=== PATIENT | female | born 1995 | race Caucasian/White ===

== ENCOUNTER 2017-06-02 20:36 | Emergency (ER) | payer SELFPAY ==
[~2017-06-02] VITALS: Ht 170.2 cm; Wt 81.8 kg
[2017-06-02 20:48] VITALS: BP 114/80
== END 2017-06-02 22:10 | disposition home or self-care (01) ==
LOC: EMS 20:37
DX: T16.2XXA Foreign body in left ear, initial encounter (principal); X58.XXXA Exposure to other specified factors, initial encounter; Y93.89 Activity, other specified; Y92.89 Other specified places as the place of occurrence of the external cause; Y99.8 Other external cause status
CPT/HCPCS: 69200; 99284

== ENCOUNTER 2018-01-23 02:42 | Emergency (ER) | payer SELFPAY ==
[~2018-01-23] VITALS: Ht 170.2 cm; Wt 77.3 kg
[2018-01-23 03:21] LABS: APPEARANCE,URINE CLOUDY (CLEAR); BILIRUBIN,URINE NEGATIVE (NEGATIVE); GLUCOSE, URINE (UA) NEGATIVE (NEGATIVE); KETONES,URINE NEGATIVE (NEGATIVE); LEUKOCYTE ESTERASE ,URINE SMALL (NEGATIVE); NITRATE,URINE NEGATIVE (NEGATIVE); OCCULT BLOOD,URINE MODERATE (NEGATIVE); PH,URINE 5.5 (5.0-8.0); PROTEIN,URINE POS 1+ (NEGATIVE); UROBILINOGEN,URINE 0.2 mg/dL (<=1.0)
[2018-01-23 03:52] LABS: BACTERIA,URINE Few /HPF (None Seen); SQUAMOUS EPITHELIAL CELL,UR Moderate /LPF (None Seen); YEAST,URINE Few /HPF (None Seen)
[2018-01-23 04:32] VITALS: BP 100/60
== END 2018-01-23 04:42 | disposition home or self-care (01) ==
LOC: EMS 02:43
DX: N39.0 Urinary tract infection, site not specified (principal); F12.90 Cannabis use, unspecified, uncomplicated; F15.90 Other stimulant use, unspecified, uncomplicated; F17.210 Nicotine dependence, cigarettes, uncomplicated
CPT/HCPCS: 87086; 99284

== ENCOUNTER 2019-07-16 12:13 | Emergency (ER) | payer MEDICAID ==
[~2019-07-16] VITALS: Ht 170.2 cm; Wt 54.5 kg
[2019-07-16 12:22] VITALS: BP 132/68
== END 2019-07-16 14:03 | disposition left against medical advice (07) ==
LOC: EMS 12:13
DX: Z53.21 Procedure and treatment not carried out due to patient leaving prior to being seen by health care provider (principal)

== ENCOUNTER 2019-07-16 13:57 | Emergency (ER) | payer MEDICAID ==
[~2019-07-16] VITALS: Ht 170.2 cm; Wt 72.7 kg
[2019-07-16 14:23] VITALS: BP 133/82
== END 2019-07-16 16:17 | disposition left against medical advice (07) ==
LOC: EMS 14:03
DX: Z53.21 Procedure and treatment not carried out due to patient leaving prior to being seen by health care provider (principal)